=== PATIENT | male | born 2000 | race Caucasian/White ===

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

== ENCOUNTER 2020-12-12 14:10 | Emergency (ER) | payer BC ==
[2020-12-12] MEDS ORDERED: SUBLIMAZE 100 MCG/2 ML IV ONE (16:19)
[2020-12-12] MEDS ORDERED: Zofran 4 MG/2 ML VIAL IV ONE (16:20)
[2020-12-12] MEDS ORDERED: SUBLIMAZE 100 MCG/2 ML ONE (16:22)
[2020-12-12] MEDS ORDERED: Zofran 4 MG/2 ML VIAL ONE (16:22)
[2020-12-12] MEDS ORDERED: BACIGUENT PACKET TP ONE (16:56)
[2020-12-12] MEDS ORDERED: XYLOCAINE 1% HCL 20 ML MDV IJ ONE (16:56)
[2020-12-12] MEDS ORDERED: BACIGUENT PACKET ONE (16:58)
[2020-12-12] MEDS ORDERED: XYLOCAINE 1% HCL 20 ML MDV ONE (16:59)
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
[2020-12-12 17:07] VITALS: BP 129/70; PULSE 72
[2020-12-12 17:11] VITALS: O2SAT 100
--- NOTE | 2020-12-12 19:59 | XRAY ---
Indication: Medial laceration. Comparison: None 3 view left ankle demonstrates medial soft tissue swelling. No other bony, articular, or soft tissue abnormalities.
== END 2020-12-12 17:15 | disposition home or self-care (01) ==
LOC: ED 14:10
DX: S91.012A Laceration without foreign body, left ankle, initial encounter (principal); V29.9XXA Motorcycle rider (driver) (passenger) injured in unspecified traffic accident, initial encounter
CPT/HCPCS: 12002; 36000; 73610; 96372; 96374; 96375; 99284; J2405; J3010; A9270-GY

== ENCOUNTER 2020-12-17 21:02 | Inpatient (IN) | payer BC ==
[~2020-12-17 21:02] MED LIST: PHARMACY DOSING REQUIRED: VANCOMYCIN IV STA
[2020-12-17] MEDS ORDERED: FLAGYL 500 MG IVPB 500 MG/100 ML BAG IV STA (22:00)
[2020-12-17] MEDS ORDERED: AZACTAM 1 GM*** 2 GM in Sodium Chloride 0.9% 100 ML BAG 100 ML IV ONE (22:02)
[2020-12-17] MEDS ORDERED: VANCOMYCIN 2 GRAM/400 ML BAG 2 GM/400 ML PIGGYBACK IV ONE ×2 (22:02→22:26)
[2020-12-17] MEDS ORDERED: MORPHINE SULFATE 4 MG INJ IV ONE (22:03)
[2020-12-17] MEDS ORDERED: Zofran 4 MG/2 ML VIAL IV ONE ×2 (22:03→23:57)
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
[2020-12-17] MEDS ORDERED: Zofran 4 MG/2 ML VIAL ONE (22:25)
[2020-12-17] MEDS ORDERED: FLAGYL 500 MG IVPB 500 MG/100 ML BAG IV ONE (22:26)
[2020-12-17] MEDS ORDERED: MORPHINE SULFATE 4 MG INJ ONE (22:26)
[2020-12-17 22:27] LABS: Hematocrit 45.3 % (42-50); Hemoglobin 15.2 gm/dl (12.5-18.0); Lymphocytes % 15.6 % (24.0-44.0); Mean Cell Volume 87.8 fl (78-100); Mean Corpuscular Hemoglobin 29.5 pg (26-32); Mean Corpuscular Hgb Concent. 33.6 g/dl (32-36); Mean Platelet Volume 11.1 fl (7.5-11.0); Neutrophil % 70.6 % (36.0-66.0); Platelet Count 263 K/mm3 (150-450); Red Blood Count 5.16 M/mm3 (4.1-5.6); Red Cell Distribution Width 12.7 % (11.5-14.0)
[2020-12-17 22:28] LABS: Absolute Neutrophil Ct (ANC) 6.37 (1.4-6.9); BASOPHIL % 0.3 % (0.0-0.4); Basophil (Absolute #) 0.03 (0-0.4); Eosinophil % 2.1 % (0.00-5.0); Eosinophil (Absolute #) 0.19 (0-0.5); Lymphocyte (Absolute #) 1.41 (1.0-4.6); Monocyte (Absolute #) 1.03 (0.0-1.3); Monocytes % 11.4 % (0.0-12.0)
[2020-12-17 22:39] LABS: ALBUMIN 4.9 g/dL (3.5-5.0); ALKALINE PHOSPHATASE 70 U/L (38-126); ANION GAP 17.1 MEQ/L (5-15); BLOOD UREA NITROGEN 13 mg/dL (9-20); CHLORIDE 100 mmol/L (98-107); Calcium 10.2 mg/dL (8.4-10.2); Carbon Dioxide 31 mmol/L (22-30); Creatinine 1 0.89 mg/dL (0.66-1.25); EST GLOMERULAR FILTRATION RATE > 60.0 ML/MIN; Glucose 96 mg/dL (74-106); Potassium 3.9 mmol/L (3.5-5.1); SGOT/AST 48 U/L (17-59); SGPT/ALT 28 U/L (0-50); SODIUM 144 mmol/L (137-145); Total Protein 8.4 g/dL (6.3-8.2)
[2020-12-18] MEDS ORDERED: Zofran 4 MG/2 ML VIAL ONE ×2 (00:07→09:40)
[2020-12-18] MEDS ORDERED: AZACTAM 1 GM ONE ×3 (00:36→04:45)
[2020-12-18] MEDS ORDERED: Sodium Chloride 0.9% 100 ML BAG 100 ML ONE (00:36)
[2020-12-18] MEDS ORDERED: Sodium Chloride 0.9% 1000 ML 1,000 ML ONE ×2 (02:13→09:28)
[2020-12-18] MEDS: Sodium Chloride 0.9% 1000 ML 1,000 ML IV SCH ×2 (02:15→11:34)
[2020-12-18] MEDS ORDERED: MORPHINE SULFATE 4 MG INJ IV PRN ×2 (02:29→16:14)
[2020-12-18] MEDS ORDERED: VANCOCIN 1 GM VIAL*** 1 GM in Sodium Chloride 0.9% 250 ML 250 ML IV SCH ×2 (02:30→10:00)
[2020-12-18] MEDS ORDERED: Zofran 4 MG/2 ML VIAL IV PRN (02:30)
[2020-12-18] MEDS ORDERED: TYLENOL 325 MG PO PRN (02:47)
[2020-12-18] MEDS ORDERED: D5w 100ML Mini Bag 100 ML 100 ML IV ONE (04:45)
[2020-12-18] MEDS: FLAGYL 500 MG IVPB 500 MG/100 ML BAG IV SCH ×4 (04:56→23:39)
[2020-12-18 05:47] LABS: Hematocrit 40.4 % (42-50); Hemoglobin 13.3 gm/dl (12.5-18.0); Mean Corpuscular Hemoglobin 29.3 pg (26-32); Mean Corpuscular Hgb Concent. 32.9 g/dl (32-36); Mean Platelet Volume 10.9 fl (7.5-11.0); Platelet Count 211 K/mm3 (150-450); Red Blood Count 4.54 M/mm3 (4.1-5.6); Red Cell Distribution Width 12.5 % (11.5-14.0); White Blood Count 6.3 K/mm3 (4.0-10.5)
[2020-12-18] MEDS ORDERED: AZACTAM 1 GM*** 1 GM in Sodium Chloride 100ML MINI-BAG PLUS 100 ML IV SCH (06:00)
[2020-12-18 06:26] LABS: ANION GAP 13.1 MEQ/L (5-15); BLOOD UREA NITROGEN 11 mg/dL (9-20); CHLORIDE 106 mmol/L (98-107); Calcium 9.1 mg/dL (8.4-10.2); Carbon Dioxide 25 mmol/L (22-30); Creatinine 1 0.89 mg/dL (0.66-1.25); EST GLOMERULAR FILTRATION RATE > 60.0 ML/MIN; Glucose 90 mg/dL (74-106); PREALBUMIN 15.65 mg/dL (17.6-36.0); Potassium 3.7 mmol/L (3.5-5.1); SODIUM 141 mmol/L (137-145)
[2020-12-18] MEDS ORDERED: Xylocaine 1% Vial 30 ML PF IJ ONE (07:32)
[2020-12-18] MEDS ORDERED: BUPIVACAINE 0.5% VIAL IJ ONE ×2 (07:32→08:55)
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
[2020-12-18] MEDS ORDERED: Lactated Ringers 1,000 ML IV ONE (08:55)
[2020-12-18] MEDS ORDERED: XYLOCAINE 1% HCL 20 ML MDV ONE (08:55)
[2020-12-18] MEDS ORDERED: Versed 2 MG/2 ML Injection ONE (08:58)
[2020-12-18] MEDS ORDERED: SUBLIMAZE 100 MCG/2 ML ONE ×3 (08:59→10:20)
[2020-12-18] MEDS ORDERED: DIPRIVAN 200 MG/20 ML IV ONE (08:59)
[2020-12-18] MEDS ORDERED: NEBCIN INJ ONE (09:12)
[2020-12-18] MEDS ORDERED: TORAdol 30 mg Injection ONE (09:40)
--- NOTE | 2020-12-18 10:36 | PCM.NOTE ---
Podiatry Post-Op Plan Podiatry Post-Op Plan: Podiatry Post-Op Plan Post-operative plan is as follows: ANTIBIOTICS: Cultures taken intraoperatively. Awaiting culture and sensititivy. Vancomycin 1.25 gm Q8H. Flagyl 500 mg Q6H. PAIN CONTROL: [place] 5/325mg q4h moderate pain. Morphine 2 mg q4h severe pain. Discharge with [place] 5/325mg q6h VTE PROPHYLAXIS: . Aspirin 325 mg daily. SCD and compression hose to non op leg. Discharge with Aspirin 325 mg PO daily DRESSINGS: Dressing to remain clean and dry and intact. Daily dressing changes with betadine paint around wound edges adpatic 4x4 abd kerlix and otilio to secure. Reinforce with Kerlix/OTILIO as necessary. ACTIVITY: NWB to operative side.Full weight bearing to non operative side with Crutch assisstance. THERAPIES: PT/OT consult for gait training, assistive device training, and assessment of functional status with NWB to the Left leg. Incentive Spirometry. PLACEMENT: consult for D/c to home. Continued plans for surgical intervention for delayed primary closure next week or weekend depending on status.
[2020-12-18] MEDS: VANCOMYCIN 1.25 GM/250 ML BAG 1.25 GM/250 ML PIGGYBACK IV SCH ×2 (11:35→18:05)
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
[2020-12-18] MEDS: AZACTAM 1 GM*** 1 GM in Sodium Chloride 100ML MINI-BAG PLUS 100 ML IV SCH ×2 (14:47→22:00)
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
[2020-12-18] MEDS: NORCO 5/325 MG PO PRN ×2 (16:36→22:02)
[2020-12-18] MEDS: PROTONIX 40 MG IV IV SCH (21:59)
[2020-12-19] MEDS: VANCOMYCIN 1.25 GM/250 ML BAG 1.25 GM/250 ML PIGGYBACK IV SCH ×3 (01:42→18:11)
[2020-12-19] MEDS: Sodium Chloride 0.9% 1000 ML 1,000 ML IV SCH ×2 (01:42→13:51)
[2020-12-19] MEDS: AZACTAM 1 GM*** 1 GM in Sodium Chloride 100ML MINI-BAG PLUS 100 ML IV SCH ×3 (05:07→21:22)
[2020-12-19 06:08] LABS: Absolute Neutrophil Ct (ANC) 3.92 (1.4-6.9); BASOPHIL % 0.3 % (0.0-0.4); Basophil (Absolute #) 0.02 (0-0.4); Eosinophil % 4.2 % (0.00-5.0); Eosinophil (Absolute #) 0.26 (0-0.5); Hematocrit 39.3 % (42-50); Hemoglobin 12.8 gm/dl (12.5-18.0); Lymphocyte (Absolute #) 1.31 (1.0-4.6); Lymphocytes % 21.3 % (24.0-44.0); Mean Cell Volume 90.3 fl (78-100); Mean Corpuscular Hemoglobin 29.4 pg (26-32); Mean Corpuscular Hgb Concent. 32.6 g/dl (32-36); Mean Platelet Volume 10.6 fl (7.5-11.0); Monocyte (Absolute #) 0.63 (0.0-1.3); Monocytes % 10.3 % (0.0-12.0); Neutrophil % 63.9 % (36.0-66.0); Platelet Count 200 K/mm3 (150-450); Red Blood Count 4.35 M/mm3 (4.1-5.6); Red Cell Distribution Width 12.6 % (11.5-14.0); White Blood Count 6.1 K/mm3 (4.0-10.5)
[2020-12-19] MEDS: FLAGYL 500 MG IVPB 500 MG/100 ML BAG IV SCH ×4 (06:10→23:54)
[2020-12-19] MEDS: NORCO 5/325 MG PO PRN ×3 (06:10→19:42)
[2020-12-19 07:14] LABS: ANION GAP 10.8 MEQ/L (5-15); BLOOD UREA NITROGEN 7 mg/dL (9-20); CHLORIDE 107 mmol/L (98-107); Calcium 8.8 mg/dL (8.4-10.2); Carbon Dioxide 27 mmol/L (22-30); Creatinine 1 0.85 mg/dL (0.66-1.25); EST GLOMERULAR FILTRATION RATE > 60.0 ML/MIN; Glucose 90 mg/dL (74-106); SODIUM 141 mmol/L (137-145)
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
[2020-12-19] MEDS: Ecotrin 325 MG PO SCH (09:20)
[2020-12-19] MEDS ORDERED: TROUGH DRUG LEVELS IJ ONE (09:30)
--- NOTE | 2020-12-19 12:01 | PCM.NOTE ---
Date and Time: 12/19/20 1159 Subjective Assessment: patient reports his pain is well controlled, he has no complaints. wound was seen by Dr Calvin this morning and redressed now Objective Exam General Appearance: no apparent distress, alert Wound Assessment: Skin/Wound Assessment Wound/Incision Assessment Start: 12/18/20 01:49 Text: Status: Active Freq: Q6H Protocol: Document 12/19/20 08:00 [facility] (Rec: 12/19/20 08:43 [facility]AN [id number]) Wound/Incision Assessment Left Medial Ankle Wound Assessment Shift Assessment Wound Type Laceration Dressing Status Dry & Intact Comment OTILIO wrap to left ankle clean dry and intact. good capillary refill to left toes, moderate foot swelling noted.-remains true Respiratory Exam: normal breath sounds, lungs clear, No respiratory distress Cardiovascular Exam: regular rate/rhythm, normal heart sounds Gastrointestinal/Abdomen Exam: soft, No tenderness, No mass Extremity Exam: normal inspection (dressing intact to left lower extremity, otilio wrap in place), normal range of motion OBJECTIVE DATA Vital Signs: Vital Signs - 24 hr Temp Pulse Resp BP Pulse Ox 12/19/20 07:54 98.0 F 72 18 108/56 95 12/19/20 04:39 97.8 F 68 18 127/61 97 12/19/20 00:13 98.6 F 76 17 114/59 96 12/18/20 20:00 99.3 F 94 H 19 114/53 95 12/18/20 19:00 99.3 F 94 H 19 114/53 95 12/18/20 15:00 100.1 F 101 H 18 124/67 98 Pain Assessment - Last Documented Pain Intensity 7 Pain Scale Used 0-10 Pain Scale Intake and Output: Intake & Output 12/16/20 12/17/20 12/18/20 12/19/20 11:59 11:59 11:59 11:59 Intake Total 302 1822 Output Total 3300 Balance 302 -1478 Weight 85.4 kg Lab Results: Lab Results-Last 24 Hours 12/19/20 12/19/20 12/19/20 Range/Units 05:45 05:45 09:35 WBC 6.1 (4.0-10.5) K/mm3 RBC 4.35 (4.1-5.6) M/mm3 Hgb 12.8 (12.5-18.0) gm/dl Hct 39.3 L (42-50) % MCV 90.3 (78-100) fl MCH 29.4 (26-32) pg MCHC 32.6 (32-36) g/dl RDW 12.6 (11.5-14.0) % Plt Count 200 (150-450) K/mm3 MPV 10.6 (7.5-11.0) fl Gran % 63.9 (36.0-66.0) % Eos # (Auto) 0.26 (0-0.5) Absolute Lymphs (auto) 1.31 (1.0-4.6) Absolute Monos (auto) 0.63 (0.0-1.3) Lymphocytes % 21.3 L (24.0-44.0) % Monocytes % 10.3 (0.0-12.0) % Eosinophils % 4.2 (0.00-5.0) % Basophils % 0.3 (0.0-0.4) % Absolute Granulocytes 3.92 (1.4-6.9) Basophils # 0.02 (0-0.4) Sodium 141 (137-145) mmol/L Potassium 4.0 (3.5-5.1) mmol/L Chloride 107 (98-107) mmol/L Carbon Dioxide 27 (22-30) mmol/L Anion Gap 10.8 (5-15) MEQ/L BUN 7 L (9-20) mg/dL Creatinine 0.85 (0.66-1.25) mg/dL Estimated GFR > 60.0 ML/MIN Glucose 90 (74-106) mg/dL Calcium 8.8 (8.4-10.2) mg/dL Vancomycin Trough 10.52 (10-20) ug/mL Radiology Exams: Radiology Procedures Category Date Time Status FOOT (2 VIEWS) Stat Exams 12/18/20 07:39 Completed Multi-Disciplinary Progress Notes: Multi-Disciplinary Progress Notes 12/19/20 08:49 Respiratory Note by Rosalva Iglesias TO [place] Initialized on 12/19/20 08:49 - END OF NOTE 12/18/20 16:05 Physical Therapy Note by Kath Farris P.T. ORDERED FOR GAIT TRAINING D/T L ANKLE CELLULITIS. PT. HAD I&D THIS AM AND IS TO HAVE ANOTHER PROCEDURE ON 12/22/20. SPOKE W/ PT. AND MOM THIS DATE. PT. HAS BEEN USING AXILLARY CRUTCHES SINCE 12/15/20 PWB-NWB. PT. AND MOM REOPRT HE IS INDEPENDENT W/ USE OF CRUTCHES AND HE VERBALIZES UNDERSTANDING OF NWB STATUS. PT. TIRED TODAY AND WILL GET UP W/ NSG ON THE AM W/ CRUTCHES AND NWB L LE. NO SKILLED INTERVENTION WARRANTED AT THIS TIME. ADVISED PT. AND MOM TO HAVE NURSING NOTIFY P.T. IF THEY HAVE QUESTIONS LATER. Initialized on 12/18/20 16:05 - END OF NOTE Assessment/Plan (1) Cellulitis of lower extremity Current Visit: Yes Status: Acute Qualifiers: Laterality: left Qualified Code(s): L03.116 - Cellulitis of left lower limb Assessment & Plan: continue vanc and flagyl per podiatry at this time plan is to return to OR with bead removal and delayed closure, patient is stable at this time. (2) Failure of outpatient treatment Current Visit: Yes Status: Acute Code(s): Z78.9 - OTHER SPECIFIED HEALTH STATUS (3) Wound infection Current Visit: Yes Status: Acute Code(s): T14.8XXA - OTHER INJURY OF UNSPECIFIED BODY REGION, INITIAL ENCOUNTER; L08.9 - LOCAL INFECTION OF THE SKIN AND SUBCUTANEOUS TISSUE, UNSP
[2020-12-19] MEDS: PROTONIX 40 MG IV IV SCH (21:22)
[2020-12-20] MEDS: Sodium Chloride 0.9% 1000 ML 1,000 ML IV SCH ×2 (02:22→12:21)
[2020-12-20] MEDS: VANCOMYCIN 1.25 GM/250 ML BAG 1.25 GM/250 ML PIGGYBACK IV SCH ×3 (02:23→18:42)
[2020-12-20] MEDS: AZACTAM 1 GM*** 1 GM in Sodium Chloride 100ML MINI-BAG PLUS 100 ML IV SCH ×3 (05:34→21:36)
[2020-12-20] MEDS: NORCO 5/325 MG PO PRN ×3 (05:34→17:52)
[2020-12-20] MEDS: FLAGYL 500 MG IVPB 500 MG/100 ML BAG IV SCH ×4 (06:00→23:47)
[2020-12-20 06:31] LABS: BASOPHIL % 0.6 % (0.0-0.4); Basophil (Absolute #) 0.03 (0-0.4); Eosinophil % 5.8 % (0.00-5.0); Eosinophil (Absolute #) 0.31 (0-0.5); Hematocrit 40.9 % (42-50); Hemoglobin 13.6 gm/dl (12.5-18.0); Lymphocyte (Absolute #) 1.32 (1.0-4.6); Lymphocytes % 24.5 % (24.0-44.0); Mean Cell Volume 88.7 fl (78-100); Mean Corpuscular Hemoglobin 29.5 pg (26-32); Mean Corpuscular Hgb Concent. 33.3 g/dl (32-36); Mean Platelet Volume 10.5 fl (7.5-11.0); Monocyte (Absolute #) 0.52 (0.0-1.3); Monocytes % 9.7 % (0.0-12.0); Neutrophil % 59.4 % (36.0-66.0); Platelet Count 225 K/mm3 (150-450); Red Blood Count 4.61 M/mm3 (4.1-5.6); Red Cell Distribution Width 12.5 % (11.5-14.0); White Blood Count 5.4 K/mm3 (4.0-10.5)
[2020-12-20 06:48] LABS: ALBUMIN 3.5 g/dL (3.5-5.0); ALKALINE PHOSPHATASE 48 U/L (38-126); ANION GAP 11.9 MEQ/L (5-15); BLOOD UREA NITROGEN 8 mg/dL (9-20); CHLORIDE 108 mmol/L (98-107); Carbon Dioxide 28 mmol/L (22-30); Creatinine 1 0.79 mg/dL (0.66-1.25); EST GLOMERULAR FILTRATION RATE > 60.0 ML/MIN; Glucose 88 mg/dL (74-106); Potassium 4.1 mmol/L (3.5-5.1); SGOT/AST 26 U/L (17-59); SGPT/ALT 22 U/L (0-50); SODIUM 144 mmol/L (137-145); Total Protein 6.3 g/dL (6.3-8.2)
--- NOTE | 2020-12-20 08:42 | PCM.NOTE ---
Date and Time: 12/20/20 0840 Subjective Assessment: no problems or concerns, pain is well controlled. tolerating po intake Objective Exam General Appearance: no apparent distress Wound Assessment: Skin/Wound Assessment Wound/Incision Assessment Start: 12/18/20 01:49 Text: Status: Active Freq: Q6H Protocol: Document 12/20/20 02:00 [facility] (Rec: 12/20/20 02:30 [facility] [id number]) Wound/Incision Assessment Left Medial Ankle Wound Assessment Shift Assessment Wound Type Laceration Dressing Status Dry & Intact Drainage Amount Minimal Drainage Odor None/Absent Comment OTILIO wrap to left ankle clean dry and intact. good capillary refill to left toes, moderate foot swelling noted.-remains true Respiratory Exam: normal breath sounds, lungs clear, No respiratory distress Cardiovascular Exam: regular rate/rhythm, normal heart sounds Gastrointestinal/Abdomen Exam: soft, No tenderness, No mass Extremity Exam: other (otilio wrap and dressing intact to LLE) OBJECTIVE DATA Vital Signs: Vital Signs - 24 hr Temp Pulse Resp BP Pulse Ox 12/20/20 07:00 97.6 F 68 16 127/60 97 12/20/20 03:00 97.7 F 74 18 131/68 98 12/19/20 23:00 98.0 F 72 18 131/66 97 12/19/20 19:26 98.3 F 84 16 121/59 97 12/19/20 16:26 98.0 F 73 18 131/75 98 12/19/20 13:00 97.9 F 75 16 130/60 96 Pain Assessment - Last Documented Pain Intensity 6 Pain Scale Used 0-10 Pain Scale Intake and Output: Intake & Output 12/17/20 12/18/20 12/19/20 12/20/20 11:59 11:59 11:59 11:59 Intake Total 302 1822 5101 Output Total 3300 Balance 302 -1478 5101 Weight 85.4 kg Lab Results: Lab Results-Last 24 Hours 12/19/20 12/20/20 12/20/20 Range/Units 09:35 05:37 05:37 WBC 5.4 (4.0-10.5) K/mm3 RBC 4.61 (4.1-5.6) M/mm3 Hgb 13.6 (12.5-18.0) gm/dl Hct 40.9 L (42-50) % MCV 88.7 (78-100) fl MCH 29.5 (26-32) pg MCHC 33.3 (32-36) g/dl RDW 12.5 (11.5-14.0) % Plt Count 225 (150-450) K/mm3 MPV 10.5 (7.5-11.0) fl Gran % 59.4 (36.0-66.0) % Eos # (Auto) 0.31 (0-0.5) Absolute Lymphs (auto) 1.32 (1.0-4.6) Absolute Monos (auto) 0.52 (0.0-1.3) Lymphocytes % 24.5 (24.0-44.0) % Monocytes % 9.7 (0.0-12.0) % Eosinophils % 5.8 H (0.00-5.0) % Basophils % 0.6 (0.0-0.4) % Absolute Granulocytes 3.20 (1.4-6.9) Basophils # 0.03 (0-0.4) Sodium 144 (137-145) mmol/L Potassium 4.1 (3.5-5.1) mmol/L Chloride 108 H (98-107) mmol/L Carbon Dioxide 28 (22-30) mmol/L Anion Gap 11.9 (5-15) MEQ/L BUN 8 L (9-20) mg/dL Creatinine 0.79 (0.66-1.25) mg/dL Estimated GFR > 60.0 ML/MIN Glucose 88 (74-106) mg/dL Calcium 9.0 (8.4-10.2) mg/dL Total Bilirubin 0.10 L (0.2-1.3) mg/dL AST 26 (17-59) U/L ALT 22 (0-50) U/L Alkaline Phosphatase 48 (38-126) U/L Serum Total Protein 6.3 (6.3-8.2) g/dL Albumin 3.5 (3.5-5.0) g/dL Vancomycin Trough 10.52 (10-20) ug/mL Multi-Disciplinary Progress Notes: Multi-Disciplinary Progress Notes 12/19/20 08:49 [place]piratory [place] Rosalva Iglesias [place] [facility] [place] on 12/19/20 08:49 - END OF NOTE Assessment/Plan (1) Cellulitis of lower extremity Current Visit: Yes Status: Acute Qualifiers: Laterality: left Qualified Code(s): L03.116 - Cellulitis of left lower limb Assessment & Plan: klebsiella sens to azactam, plan to return to OR per podiatry. continue current management (2) Failure of outpatient treatment Current Visit: Yes Status: Acute Code(s): Z78.9 - OTHER SPECIFIED HEALTH STATUS (3) Wound infection Current Visit: Yes Status: Acute Code(s): T14.8XXA - OTHER INJURY OF UN SPECIFIED BODY REGION, INITIAL ENCOUNTER; L08.9 - LOCAL INFECTION OF THE SKIN AND SUBCUTANEOUS TISSUE, UNSP
[2020-12-20] MEDS: Ecotrin 325 MG PO SCH (10:12)
[2020-12-20] MEDS: PROTONIX 40 MG IV IV SCH (21:40)
[2020-12-21] MEDS: VANCOMYCIN 1.25 GM/250 ML BAG 1.25 GM/250 ML PIGGYBACK IV SCH (01:36)
[2020-12-21 05:41] LABS: Absolute Neutrophil Ct (ANC) 4.24 (1.4-6.9); BASOPHIL % 0.3 % (0.0-0.4); Basophil (Absolute #) 0.02 (0-0.4); Eosinophil % 3.7 % (0.00-5.0); Eosinophil (Absolute #) 0.24 (0-0.5); Hematocrit 43.2 % (42-50); Hemoglobin 14.2 gm/dl (12.5-18.0); Lymphocyte (Absolute #) 1.25 (1.0-4.6); Lymphocytes % 19.4 % (24.0-44.0); Mean Corpuscular Hemoglobin 28.9 pg (26-32); Mean Corpuscular Hgb Concent. 32.9 g/dl (32-36); Mean Platelet Volume 10.5 fl (7.5-11.0); Monocyte (Absolute #) 0.69 (0.0-1.3); Monocytes % 10.7 % (0.0-12.0); Neutrophil % 65.9 % (36.0-66.0); Platelet Count 252 K/mm3 (150-450); Red Blood Count 4.91 M/mm3 (4.1-5.6); Red Cell Distribution Width 12.6 % (11.5-14.0); White Blood Count 6.4 K/mm3 (4.0-10.5)
[2020-12-21] MEDS: AZACTAM 1 GM*** 1 GM in Sodium Chloride 100ML MINI-BAG PLUS 100 ML IV SCH (06:05)
[2020-12-21] MEDS: NORCO 5/325 MG PO PRN ×3 (06:05→19:58)
[2020-12-21 06:19] LABS: ANION GAP 13.3 MEQ/L (5-15); BLOOD UREA NITROGEN 9 mg/dL (9-20); CHLORIDE 107 mmol/L (98-107); Calcium 9.6 mg/dL (8.4-10.2); Carbon Dioxide 25 mmol/L (22-30); Creatinine 1 0.79 mg/dL (0.66-1.25); EST GLOMERULAR FILTRATION RATE > 60.0 ML/MIN; Glucose 83 mg/dL (74-106); Potassium 4.1 mmol/L (3.5-5.1); SODIUM 140 mmol/L (137-145)
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
[2020-12-21] MEDS: FLAGYL 500 MG IVPB 500 MG/100 ML BAG IV SCH (09:28)
[2020-12-21] MEDS: Levofloxacin 500MG/100ML D5W 500 MG/100 ML BAG IV SCH (09:39)
[2020-12-21] MEDS: Ecotrin 325 MG PO SCH (11:18)
[2020-12-21] MEDS: PROTONIX 40 MG IV IV SCH (21:18)
[2020-12-21] MEDS: Lactated Ringers 1,000 ML IV SCH (21:40)
[2020-12-22] MEDS: NORCO 5/325 MG PO PRN (00:03)
[2020-12-22] MEDS ORDERED: XYLOCAINE 1% HCL 20 ML MDV ONE (07:03)
[2020-12-22] MEDS ORDERED: BUPIVACAINE 0.5% VIAL IJ ONE (07:03)
[2020-12-22] MEDS: Levofloxacin 500MG/100ML D5W 500 MG/100 ML BAG IV SCH (09:50)
[2020-12-22] MEDS: Lactated Ringers 1,000 ML IV SCH (09:50)
[2020-12-22] MEDS: Ecotrin 325 MG PO SCH (09:51)
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
[2020-12-22] MEDS ORDERED: Versed 2 MG/2 ML Injection ONE (13:32)
[2020-12-22] MEDS ORDERED: SUBLIMAZE 100 MCG/2 ML ONE ×3 (13:32→14:30)
[2020-12-22] MEDS ORDERED: DIPRIVAN 200 MG/20 ML IV ONE (13:32)
[2020-12-22] MEDS ORDERED: MORPHINE SULFATE 10 MG/ML ONE (14:29)
[2020-12-22] MEDS ORDERED: MOTRIN 600 MG PO PRN (16:06)
[2020-12-22 16:12] VITALS: BP 121/64; PULSE 72; O2SAT 97
--- NOTE | 2020-12-22 17:55 | PCM.NOTE ---
Podiatry Post-Op Plan Podiatry Post-Op Plan: Podiatry Post-Op Plan Post-operative plan is as follows:[] ANTIBIOTICS:Dc levofloxacin 500mg PO 10 days PAIN CONTROL: D/c with acetaminophen 325 mg capsule, Naproxen 375 mg PO BID VTE PROPHYLAXIS: Aspirin 325 mg PO daily 30 days DRESSINGS: Dressing to remain clean and dry. Reinforce with Kerlix/OTILIO as necessary. ACTIVITY: NWB to operative side. D/c To home: follow up week outpatient.
--- NOTE | 2020-12-22 17:56 | OP ---
Podiatry Procedure Note Procedure Date:: 12/22/20 Procedure Time: 01:15 Podiatry Procedure Note: Dictated. See full operative report for details.
--- NOTE | 2020-12-23 08:47 | OP ---
SURGERY DATE/TIME: 12/22/2020 6626 PREOPERATIVE DIAGNOSIS: Laceration with wound infection left ankle and failed outpatient therapy. POSTOPERATIVE DIAGNOSIS: Laceration with wound infection left ankle and failed outpatient therapy. PROCEDURE: Repeat incision and drainage, removal of antibiotic beads as well as primary closure. SURGEON: Nikunj Isidro DPM. MUD TEMPERER: None. ANESTHESIA: General. HEMOSTASIS: Pressure dressing. ESTIMATED BLOOD LOSS: Less than 10 cc. MATERIALS: 3-0 Nylon. INJECTABLES: 10 cc of a 1% lidocaine plain and 0.5% bupivacaine plain in a 1:1 mixture injected into the posterior tibial nerve distribution of the left ankle. DESCRIPTION OF PROCEDURE AND FINDINGS: After adequate assessment by the preoperative anesthesia team, the patient was brought into the OR and placed on the OR table in the supine position. Following adequate administration of general anesthetic, the patient's left lower extremity was prepped and draped in typical sterile fashion. At this time attention was then directed to the left lower extremity where the two retention sutures were removed demonstrating relatively clean edges with some necrotic margin of the wound. The wound was explored at this time with removal of the antibiotic beads in order to assess further in the wound base. At this time there was some residual necrotic tissue at the medial aspect of the left ankle which was debrided utilizing curette. The remainder of the wound was inspected for any necrotic tissue at this time. Pulse lavage with copious amounts of sterile saline were utilized to identify, were used to cleanse the surgical site and at this time was inspected following pulse lavage demonstrating clean margins and no residual signs of infection or necrosis. At this time a 15 blade was utilized to incise the edge of the wound where there was a clean healthy margin of bleeding as well as a removal of all the remaining necrotic tissue at the margin. Following this continued lavage was performed. At this time the incision was then coapted utilizing an alternating horizontal mattress and simple interrupted-type suture so that the wound was everted and coapted. At this time a sopping wet lap was applied in order to cleanse the left lower extremity and then dried and a dressing consisting of Betadine, Adaptic, 4x4, Kerlix and OTILIO was applied to the left lower extremity. The patient was reversed from anesthesia and handled the operation and anesthesia without complication. Postoperative orders as indicated in the patient's chart.
== END 2020-12-22 16:30 | disposition home or self-care (01) | DRG 908 ==
LOC: ED 21:02 → MED SURG 12-18 00:37
PROVIDERS: ADMIT Family Medicine; ATTEND Family Medicine
PROC: 0H9NXZX Drainage of Left Foot Skin, External Approach, Diagnostic (ICD-10-PCS; 2020-12-18)
PROC: 3E0102A Introduction of Anti-Infective Envelope into Subcutaneous Tissue, Open Approach (ICD-10-PCS; 2020-12-18)
PROC: 0H9NXZX Drainage of Left Foot Skin, External Approach, Diagnostic (ICD-10-PCS; principal; 2020-12-22)
PROC: 0YQN0ZZ Repair Left Foot, Open Approach (ICD-10-PCS; 2020-12-22)
DX: T81.49XS Infection following a procedure, other surgical site, sequela (principal); L03.116 Cellulitis of left lower limb; L02.612 Cutaneous abscess of left foot; S91.312S Laceration without foreign body, left foot, sequela; Z20.828 Contact with and (suspected) exposure to other viral communicable diseases
CPT/HCPCS: 10061; 11981; 13160; 36000; 36415; 73620; 80048; 80053; 80202; 83605; 84134; 85025; 85027; 87040; 87070; 87077; 87186; 96365; 96368; 96374; 99231; 99285; J1885; J1956; J2001; J2250; J2270; J2405; J2704; J3010; J3260; U0003; A9270-GY; J3370

== ENCOUNTER 2021-02-27 08:44 | Emergency (ER) | payer BC ==
[2021-02-27 08:55] VITALS: O2SAT 98
--- NOTE | 2021-02-27 09:07 | ERPHSYRPT ---
- History of Present Illness Time Seen by Provider: 02/27/21 09:02 Source: patient Exam Limitations: no limitations Patient Subjective Stated Complaint: Pt states "I was headed after my dog and I tripped and hit a metal stake and cut my knee." Triage Nursing Assessment: Pt presented alert and oriented X 3, skin pwd. Pt ambulates with a limp. pt has laceration note to right knee. area is clean with no bleeding. Physician History: Pt states "I was headed after my dog and I tripped and hit a metal stake and cut my knee." pt has laceration note to right knee. area is clean with no bleeding. Method of Injury: incised Occurred: yesterday Severity of Pain-Max: mild Severity of Pain-Current: mild Lower Extremities Pain: knee: right Modifying Factors: Improves With: nothing Associated Symptoms: none Allergies/Adverse Reactions: amoxicillin Allergy (Mild, Verified 12/17/20 22:04) Swelling Home Medications: No Reportable Medications [No Reported Medications] 02/27/21 [History] Hx Tetanus, Diphtheria Vaccination/Date Given: Yes Hx Influenza Vaccination/Date Given: No Hx Pneumococcal Vaccination/Date Given: No Immunizations Up to Date: Yes Travel Risk - International Travel Have you traveled outside of the country in past 3 weeks: No - Coronavirus Screening Are you exhibiting any of the following symptoms?: No Close contact with a COVID-19 positive Pt in past 14-21 Days: No - Vaccine Status Have you recieved a Covid-19 vaccination: No - Review of Systems Constitutional: No Symptoms Eyes: No Symptoms Ears, Nose, & Throat: No Symptoms Respiratory: No Symptoms Cardiac: No Symptoms Abdominal/Gastrointestinal: No Symptoms Genitourinary Symptoms: No Symptoms Musculoskeletal: No Symptoms Skin: Other (laceration right knee 5 cms triangular) - Past Medical History Pertinent Past Medical History: No Neurological History: No Pertinent History ENT History: No Pertinent History Cardiac History: No Pertinent History Respiratory History: No Pertinent History Endocrine Medical History: No Pertinent History Musculoskeletal History: No Pertinent History GI Medical History: No Pertinent History History: No Pertinent History Psycho-Social History: No Pertinent History Male Reproductive Disorders: No Pertinent History Other Medical History: heart murmer - Past Surgical History Past Surgical History: No - Social History Smoking Status: Never smoker Exposure to second hand smoke: No Drug Use: none Patient Lives Alone: No Significant Family History: no pertinent family hx - Nursing Vital Signs Nursing Vital Signs: Initial Vital Signs Temperature 98.9 F 02/27/21 08:47 Pulse Rate 92 H 02/27/21 08:47 Respiratory Rate 20 02/27/21 08:47 Blood Pressure 133/55 02/27/21 08:47 O2 Sat by Pulse Oximetry 98 02/27/21 08:47 Pain Scale Pain Intensity 5 - Physical Exam General Appearance: no apparent distress Eyes, Ears, Nose, Throat Exam: normal ENT inspection Neck Exam: normal inspection Cardiovascular/Respiratory Exam: chest non-tender Gastrointestinal/Abdominal Exam: non-tender Back Exam: normal inspection Knees Exam: right knee: soft tissue tenderness (laceration on left knee) Neuro/Tendon Exam: normal sensation Mental Status Exam: alert, oriented x 3 Skin Exam: laceration SpO2 Interpretation: normal SpO2: 98 O2 Delivery: Room Air Procedures - Laceration/Wound Repair Right Anterior Time of Procedure: 09:06 Wound Location: Right Wound Length (cm): 6 Wound's Depth, Shape: superficial, stellate Wound Explored: clean Irrigated: Yes Hibiclens Prep: Yes Wound Repaired With: Ping (7 ping) - Course Nursing assessment & vital signs reviewed: Yes - Progress Progress: improved Counseled pt/family regarding: diagnosis, need for follow-up (ping removal in 10 days, keep knee immobile and wrapped.) - Departure Departure Disposition: Home Clinical Impression: Laceration of right knee without foreign body Qualifiers: Encounter type: initial encounter Qualified Code(s): S81.011A - Laceration without foreign body, right knee, initial encounter Condition: Stable Critical Care Time: No Referrals: SUSANNA BORREGO [Primary Care Provider] - Follow Up with PCP/3 days (follow up in 10 days for suture removal) Instructions: Laceration Repair With [place] (DC) Additional Instructions: Discharge/Care Plan MELYELIGIO GABRIEL was seen on 02/27/21 in the Emergency Room. The patient was counseled regarding Diagnosis,Lab results, Imaging studies, need for follow up and when to return to the Emergency Room. Prescriptions given: Discharge Note I have spoken with the patient and/or caregivers. I have explained the patient's condition, diagnosis and treatment plan based on the information available to me at this time. I have answered the patient's and/or caregiver's questions and addressed any concerns. The patient and/or caregivers have as good understanding of the patient's diagnosis, condition and treatment plan as can be expected at this point. The vital signs have been stable. The patient's condition is stable and appropriate for discharge from the emergency department. The patient will pursue further outpatient evaluation with the primary care physician or other designated or consulting physician as outlined in the discharge instructions. The patient and/or caregivers are agreeable to this plan of care and follow-up instructions have been explained in detail. The patient and/or caregivers have received these instruction. The patient/and or caregivers are aware that any significant change in condition or worsening of symptoms should prompt an immediate return to this or the closest emergency department or call 911. ELIGIO BOONE GABRIEL was seen on 02/27/21 n the Emergency Room. At that time you were treated for an emergent condition, during your visit Laboratory, Radiology and/or other procedures may have been ordered. It is very important that you follow-up with your Primary Care Physician SUSANNA BORREGO within the next 24-48 hours to review your Emergency Room visit and the final results of testing that was ordered. Some test results such as Urine Cultures, Blood Cultures, and other cultures if ordered will not be finalized for 24-48 hours. If you do not have a Primary Care Provider please call the medical records department at [phone] ext [phone] to obtain a copy of your results or you may sign into our patient portal to obtain these results by visiting us @ [email or web address] and completing the following steps: 1. Click on the Patient Portal link 2. Click the Patient Self Enrollment Link to complete the enrollment form and entering your 3. Once the enrollment form is completed you will receive an email with a temporary ID and password at the email address you provided. 4. Next choose a user name and password. Your user name must be at least 4 characters long and your password must be at least 4 characters long. 5. Choose a security question from the list and provide your answer to the question. If you already have signed into the Health Portal you may access your Health Care Information 02/01 by the following steps: 1. Login to our website @ [email or web address] 2. Enter your original user name and password. FAQS The [facility] Health Portal is an online tool that contains your Lab Results, Radiology Reports, Visit History, Discharge Instructions and Health Summary Lab and Radiology Results will not be available for 72 hours on the portal. The Portal is a secure site, passwords are encryted and URLs are re-written so they cannot be copied and pasted. You and authorized family members are the only ones who can access your Portal. Also there is a timeout feature that protects your information if you leave the Portal page open. If you have technical difficulty please use the Contact Us link on the page this will allow you to submit any questions you have regarding the Portal or you may contact the Medical Record Department at [phone] ext [phone]. Staple removal in 10 days. Donot bend knee for at least 3-5 days Forms: Work/School Release Form
[2021-02-27 09:23] VITALS: BP 128/61; PULSE 86
== END 2021-02-27 09:22 | disposition home or self-care (01) ==
LOC: ED 08:44
DX: S81.011A Laceration without foreign body, right knee, initial encounter (principal); W01.198A Fall on same level from slipping, tripping and stumbling with subsequent striking against other object, initial encounter; Y93.01 Activity, walking, marching and hiking; Y92.89 Other specified places as the place of occurrence of the external cause
CPT/HCPCS: 12002; 99283

== ENCOUNTER 2022-01-31 16:11 | Emergency (ER) | payer BC ==
--- NOTE | 2022-01-31 17:58 | ERPHSYRPT ---
- History of Present Illness Time Seen by Provider: 01/31/22 17:22 Source: patient Exam Limitations: no limitations Patient Subjective Stated Complaint: Patient states he cut his thumb when working on dry wall at home around 4pm today. Triage Nursing Assessment: Patient ambulated back to ED. He is alert and oriented. Laceration noted to left hand thumb. The laceration was covered with a papertowel when patient arrived. Paper towel removed. Moderate amount of active bleeding from thumb laceration. Area cleansed with sterile water and hibiclens; patient tolerated well. Bleeding slowed when gauze applied. Laceration is 2cm in length. Physician History: This is a 21 yr old pt. presenting to ED with laceration to left thumb sustained 30 min prior to arrival - Reports that he was working on a dry wall when he accidentally cut his thumb. Reports the knife was new, had just started working when this happened - Tetanus uptodate - states he had had several work related injuries. - Is not on blood thinners - Reports thumb hurts - Denies allergy to injected anesthetics. - Denies other injuries / medical problems. - currently on cefdinir. Timing/Duration: today Quality: painful Severity: mild Location: hands Possible Causes: other (Cut with clean new knife) Associated Symptoms: No blisters, No change in skin texture, No fever, No numbness, No paresthesia, No tingling Allergies/Adverse Reactions: amoxicillin Allergy (Mild, Verified 01/31/22 17:39) Swelling Home Medications: Cefdinir 1 cap PO BID 01/31/22 [History] Hx Tetanus, Diphtheria Vaccination/Date Given: Yes Hx Influenza Vaccination/Date Given: No Hx Pneumococcal Vaccination/Date Given: No Immunizations Up to Date: Yes Travel Risk - International Travel Have you traveled outside of the country in past 3 weeks: No - Coronavirus Screening Are you exhibiting any of the following symptoms?: No Close contact with a COVID-19 positive Pt in past 14-21 Days: No - Vaccine Status Have you recieved a Covid-19 vaccination: No - Review of Systems Constitutional: No Fever, No Chills, No Malaise Eyes: No Discharge, No Eye Redness, No Vision Changes, No Double Vision Ears, Nose, & Throat: No Ear Pain, No Ear Discharge, No Sinus Drainage, No Throat Pain Respiratory: No Cough, No Dyspnea on Exertion (CRUZ), No Wheezing Cardiac: No Chest Pain, No Edema, No Palpitations Abdominal/Gastrointestinal: No Abdominal Pain, No Nausea, No Vomiting, No Constipation, No Hematemesis, No Hematochezia Genitourinary Symptoms: No Dysuria, No Hematuria, No Flank Pain Musculoskeletal: No Arthralgias, No Joint Redness, No Joint Swelling Skin: Other (laceration on left thumb) Neurological: No Dizziness, No Focal Weakness, No Headache, No Seizure, No Sensory Changes Psychological: No Alcohol Abuse, No Drug Abuse Hematologic/Lymphatic: No Symptoms, No Easy Bleeding, No Easy Bruising Immunological/Allergic: No Symptoms All Other Systems: Reviewed and Negative - Past Medical History Pertinent Past Medical History: No Neurological History: No Pertinent History ENT History: No Pertinent History Cardiac History: No Pertinent History Respiratory History: No Pertinent History Endocrine Medical History: No Pertinent History Musculoskeletal History: No Pertinent History GI Medical History: No Pertinent History History: No Pertinent History Psycho-Social History: No Pertinent History Male Reproductive Disorders: No Pertinent History Other Medical History: heart murmer - Past Surgical History Past Surgical History: Yes Musculoskeletal: Orthopedic Surgery Other Surgical History: ankle surgery - Social History Smoking Status: Never smoker Exposure to second hand smoke: No Drug Use: none Patient Lives Alone: No Significant Family History: no pertinent family hx - Nursing Vital Signs Nursing Vital Signs: Initial Vital Signs Temperature 97.8 F 01/31/22 17:12 Pulse Rate 80 01/31/22 17:12 Respiratory Rate 18 01/31/22 17:12 Blood Pressure 124/72 01/31/22 17:12 O2 Sat by Pulse Oximetry 98 01/31/22 17:12 Pain Scale Pain Intensity 5 - Physical Exam General Appearance: no apparent distress Eye Exam: PERRL/EOMI, eyes nml inspection Ears, Nose, Throat Exam: normal ENT inspection, pharynx normal, moist mucous membranes Neck Exam: normal inspection, non-tender, supple, full range of motion Respiratory Exam: normal breath sounds, lungs clear Cardiovascular Exam: regular rate/rhythm, normal heart sounds, normal peripheral pulses, capillary refill <2 sec Gastrointestinal/Abdomen Exam: soft, normal bowel sounds Back Exam: normal inspection Extremity Exam: normal inspection Neurologic Exam: alert, oriented x 3, cooperative Skin Exam: normal color, warm, laceration, other (a 2cm laceration along lateral border to thumb adjaced to nail, not involving the nail, actively bleeding, superficial, no involvement of tendons, good ROM, no exposure of fat, no FB has been cleaned thoroughly.) Lymphatic Exam: adenopathy SpO2 Interpretation: normal SpO2: 98 O2 Delivery: Room Air Procedures - Laceration/Wound Repair Left Finger Time of Procedure: 07:30 Wound Location: Left Wound Length (cm): 2 (cm) Wound's Depth, Shape: superficial Wound Explored: in bloodless field Irrigated: Yes Hibiclens Prep: Yes Anesthesia: local, 1% Lidocaine Volume Anesthetic (ccs): 4 Wound Debrided: Not needed Wound Repaired With: sutures Suture Size/Type: 4-0, ethilon Number of Sutures: 4 Layer Closure?: No Sterile Dressing Applied?: Yes Splint Applied?: No Sling Applied?: No Progress: 02/01/22 21:37 Pt. tolerated procedure well, minimal bleeding during suturing. Bleeding completely controlled post suturing. Ordered Tests: Medication Summary Discontinued Medications Generic Name Dose Route Start Last Admin Trade Name Ottoq PRN Reason Stop Dose Admin Bacitracin Zinc Confirm 01/31/22 18:09 Bacitracin Packet 1 Each Pckt Administered 01/31/22 18:10 Dose 1 each .ROUTE .STK-MED ONE Bacitracin Zinc 0.9 each 01/31/22 18:00 01/31/22 18:01 Bacitracin Packet 1 Each Pckt TP 01/31/22 18:01 0.9 each STAT ONE Administration Lidocaine HCl 2 ml 01/31/22 18:26 01/31/22 18:27 Lidocaine Hcl 1% 20 Ml Mdv 20 Ml Ml IJ 01/31/22 18:27 2 ml STAT ONE Administration - Progress Progress: improved Progress Note: 02/01/22 21:38 This's a 21 yr old pt. presenting with 2 cm superficial laceration to left thumb - which occured 30 min ago - Wound was closed by sterile technique- please see suturing note - Currently on cefdinir- continue - tetanus - uptodate - Wound care discussed in detail - Advised ice pack x 10-15 min TID, and close f/u with PCP in am - Pt. advised to return for any new or worsening s/s or any concern at all. - Has no further questions. - Departure Clinical Impression: Laceration of thumb without complication Condition: Stable Critical Care Time: No Referrals: IVELISSE NG MD [Primary Care Provider] - Follow up/PCP as directed Additional Instructions: Discharge/Care Plan ELIGIO BOONE was seen on 01/31/22 in the Emergency Room. The patient was counseled regarding Diagnosis,Lab results, Imaging studies, need for follow up and when to return to the Emergency Room. Prescriptions given: Discharge Note I have spoken with the patient and/or caregivers. I have explained the patient's condition, diagnosis and treatment plan based on the information available to me at this time. I have answered the patient's and/or caregiver's questions and addressed any concerns. The patient and/or caregivers have as good understanding of the patient's diagnosis, condition and treatment plan as can be expected at this point. The vital signs have been stable. The patient's condition is stable and appropriate for discharge from the emergency department. The patient will pursue further outpatient evaluation with the primary care physician or other designated or consulting physician as outlined in the discharge instructions. The patient and/or caregivers are agreeable to this plan of care and follow-up instructions have been explained in detail. The patient and/or caregivers have received these instruction. The patient/and or caregivers are aware that any significant change in condition or worsening of symptoms should prompt an immediate return to this or the closest emergency department or call 911.
[2022-01-31] MEDS ORDERED: BACIGUENT PACKET TP ONE (18:00)
[2022-01-31] MEDS ORDERED: BACIGUENT PACKET ONE (18:09)
[2022-01-31 18:23] VITALS: BP 120/68; PULSE 76
[2022-01-31] MEDS ORDERED: XYLOCAINE 1% HCL 20 ML MDV IJ ONE (18:26)
[2022-02-01 21:29] VITALS: O2SAT 98
== END 2022-01-31 18:28 | disposition home or self-care (01) ==
LOC: ED 16:11
DX: S61.012A Laceration without foreign body of left thumb without damage to nail, initial encounter (principal); W26.0XXA Contact with knife, initial encounter; Y93.H3 Activity, building and construction; Z28.310 Unvaccinated for COVID-19
CPT/HCPCS: 12001; 99283; A9270-GY

== ENCOUNTER 2022-10-17 19:25 | Emergency (ER) | payer BC ==
[2022-10-17] MEDS ORDERED: CLINDAMYCIN-D5W 600 MG/50 ML IV ONE (19:26)
[2022-10-17 20:44] VITALS: O2SAT 98
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
[2022-10-17] MEDS ORDERED: XYLOCAINE 1% HCL 20 ML MDV IJ ONE (21:43)
[2022-10-17] MEDS ORDERED: NORCO 5/325 MG ONE (21:57)
[2022-10-17] MEDS ORDERED: NORCO 5/325 MG PO ONE (21:57)
[2022-10-17] MEDS ORDERED: Cleocin Phosphate IV 600 MG/4 ML IM ONE (22:30)
[2022-10-17] MEDS ORDERED: CLINDAMYCIN-D5W 900 MG/50 ML*** 900 MG/50 ML BAG IV STA (22:45)
[2022-10-17] MEDS ORDERED: CLINDAMYCIN-D5W 900 MG/50 ML*** 900 MG/50 ML BAG IV ONE (22:45)
[2022-10-17 23:26] VITALS: BP 118/67; PULSE 74
--- NOTE | 2022-10-18 08:43 | XRAY ---
Indication: Laceration. Comparison: None 3 view left hand demonstrates laceration thenar eminence with punctate soft tissue foreign body. No other bony, articular, or soft tissue abnormalities.
== END 2022-10-17 23:15 | disposition home or self-care (01) ==
LOC: ED 19:25
DX: S80.211A Abrasion, right knee, initial encounter (principal); S50.311A Abrasion of right elbow, initial encounter; S20.411A Abrasion of right back wall of thorax, initial encounter; S61.412A Laceration without foreign body of left hand, initial encounter; V28.49XA Other motorcycle driver injured in noncollision transport accident in traffic accident, initial encounter; Z28.310 Unvaccinated for COVID-19
CPT/HCPCS: 12002; 36000; 73130; 96372; 99285; A9270-GY

== ENCOUNTER 2024-05-22 19:59 | Emergency (ER) | payer BC ==
[2024-05-22 21:06] VITALS: TEMP 98.5
--- NOTE | 2024-05-22 21:50 | ERPHSYRPT ---
- History of Present Illness Time Seen by Provider: 05/22/24 21:47 Source: patient Exam Limitations: no limitations Patient Subjective Stated Complaint: "I've had blood in my poop for the past 3 days and my stomach really hurts. The blood is bright red and seems like it's a lot." Triage Nursing Assessment: Pt presents to ER with complaints of diffused abdominal pain x 3 days with bloody stools of bright red blood. Pt denies diarrhea, vomiting, or nausea. States pain is 6/10 scale. Abdomen is tender and slightly distended. Pt is alert and oriented x 3. Skin is pink, warm, and dry. Respirations are easy. Ambulates and communicates appropriately. Physician History: Patient is a 24-year-old male presents to emergency department for evaluation of 3-day history of bright red blood per rectum and left lower quadrant pain. Patient is otherwise healthy no history of diverticulosis or diverticulitis that he is aware of. No trauma no fever. No history of gastric ulcers. Patient states otherwise healthy. He voices no other complaints or concerns at this time. Patient declined pain medication Portions of this note were created with voice recognition technology. There may be grammatical, spelling, punctuation or sound alike errors Timing/Duration: today, day(s) Severity: moderate Modifying Factors: Improves With: nothing Associated Symptoms: denies symptoms Allergies/Adverse Reactions: amoxicillin Allergy (Mild, Verified 05/22/24 21:01) Swelling ketorolac [From Toradol] Adverse Reaction (Mild, Verified 05/22/24 21:01) Vomiting Home Medications: No Reportable Medications [No Reported Medications] 05/22/24 [History] Hx Tetanus, Diphtheria Vaccination/Date Given: Yes Hx Influenza Vaccination/Date Given: No Hx Pneumococcal Vaccination/Date Given: No Immunizations Up to Date: No Travel Risk - International Travel Have you traveled outside of the country in past 3 weeks: No - Emerging Infectious Disease Are you exhibiting symptoms associated with any current EIDs: Yes Symptoms: Abdominal Pain - Review of Systems Constitutional: No Symptoms, No Fever, No Chills Eyes: No Symptoms Ears, Nose, & Throat: No Symptoms Respiratory: No Symptoms, No Cough, No Dyspnea Cardiac: No Symptoms, No Chest Pain, No Edema, No Syncope Abdominal/Gastrointestinal: No Symptoms, No Abdominal Pain, No Nausea, No Vomiting, No Diarrhea Genitourinary Symptoms: No Symptoms, No Dysuria Musculoskeletal: No Symptoms, No Back Pain, No Neck Pain Skin: No Symptoms, No Rash Neurological: No Symptoms, No Dizziness, No Focal Weakness, No Sensory Changes Psychological: No Symptoms Endocrine: No Symptoms Hematologic/Lymphatic: No Symptoms Immunological/Allergic: No Symptoms All Other Systems: Reviewed and Negative - Past Medical History Pertinent Past Medical History: No Neurological History: No Pertinent History ENT History: No Pertinent History Cardiac History: No Pertinent History Respiratory History: No Pertinent History Endocrine Medical History: No Pertinent History Musculoskeletal History: No Pertinent History GI Medical History: No Pertinent History History: No Pertinent History Psycho-Social History: No Pertinent History Male Reproductive Disorders: No Pertinent History Other Medical History: heart murmer - Past Surgical History Past Surgical History: Yes Musculoskeletal: Orthopedic Surgery Other Surgical History: ankle surgery Significant Family History: no pertinent family hx - Social History Smoking Status: Never smoker Exposure to second hand smoke: No Drug Use: none Patient Lives Alone: Yes - Social Determinants of Health Will the patient participate in the screening: Yes Do you worry about a steady place to live?: No Do you have any problems with any of the following?: No known problems In the past 12 months,have you had to go without utilities?: No Transportation Issues: No Has anyone in your support network made you feel unsafe?: No Have you or anyone in your house had to go without enough: No - Nursing Vital Signs Nursing Vital Signs: Initial Vital Signs Blood Pressure 147/78 05/22/24 21:00 O2 Sat by Pulse Oximetry 96 05/22/24 21:00 Pain Scale Pain Intensity 5 - Physical Exam General Appearance: no apparent distress, alert Eye Exam: PERRL/EOMI, eyes nml inspection Ears, Nose, Throat Exam: normal ENT inspection, moist mucous membranes Neck Exam: normal inspection, full range of motion Respiratory Exam: normal breath sounds, lungs clear, airway intact, No respiratory distress Cardiovascular Exam: regular rate/rhythm, normal heart sounds, normal peripheral pulses Gastrointestinal/Abdomen Exam: soft, normal bowel sounds, tenderness (Left lower quadrant tenderness to palpation), other (No active bleeding. Normal external anatomy of anus. No obvious hemorrhoids observed), No mass Back Exam: normal inspection, normal range of motion, No CVA tenderness, No vertebral tenderness Extremity Exam: normal inspection, normal range of motion, pelvis stable Neurologic Exam: alert, oriented x 3, cooperative, normal mood/affect, sensation nml, No motor deficits Skin Exam: normal color, warm, dry, No rash Lymphatic Exam: No adenopathy SpO2 Interpretation: normal SpO2: 97 O2 Delivery: Room Air - Course Nursing assessment & vital signs reviewed: Yes - CT Exams Abdomen/Pelvis CT Interpretation: Tele-radiologist Report (Fatty liver) Ordered Tests: Active Orders 24 hr Category Date Time Status ABDOMEN AND PELVIS W/0 CONTRAS [CT] Stat Exams 05/22/24 21:46 Completed CBC W DIFF Stat Lab 05/22/24 21:55 Completed CMP Stat Lab 05/22/24 21:55 Completed Medication Summary Discontinued Medications Generic Name Dose Route Start Last Admin Trade Name Freq PRN Reason Stop Dose Admin Sodium Chloride 1,000 mls @ 999 mls/hr 05/22/24 21:46 05/22/24 21:56 Sodium Chloride 0.9% 1000 Ml IV 05/22/24 22:46 999 mls/hr .Q1H1M STA Administration Sodium Chloride Confirm 05/22/24 21:54 Sodium Chloride 0.9% 1000 Ml Administered 05/22/24 21:55 Dose 1,000 mls @ ud .ROUTE .STK-MED ONE Lab/Rad Data: Laboratory Result Diagrams 05/22/24 21:55 05/22/24 21:55 Laboratory Results 05/22/24 05/22/24 Range/Units 21:55 21:55 WBC 7.5 (4.23-9.07) x10^3/uL RBC 5.15 (4.63-6.08) x10^6/uL Hgb 15.4 (13.7-17.5) g/dL Hct 44.3 (40.1-51.0) % MCV 86.0 (79.0-92.2) fL MCH 29.9 (25.7-32.2) pg MCHC 34.8 (32.3-36.5) g/dL RDW 12.0 (11.6-14.4) % Plt Count 222 (163-337) x10^3/uL MPV 10.5 (9.4-12.4) fL Gran % 55.8 (34.0-67.9) % Immature Gran % (Auto) 0.4 (0.001-0.429) % Nucleat RBC Rel Count 0.0 (0.00-0.2) % Eos # (Auto) 0.22 (0.04-0.54) x10^3/uL Immature Gran # (Auto) 0.03 (0.001-0.031) x10^3u/L Absolute Lymphs (auto) 2.30 (1.32-3.57) x10^3/uL Absolute Monos (auto) 0.73 (0.30-0.82) x10^3/uL Absolute Nucleated RBC 0.00 (0.00-0.012) x10^3u/L Lymphocytes % 30.5 (21.8-53.1) % Monocytes % 9.7 (5.3-12.2) % Eosinophils % 2.9 (0.8-7.0) % Basophils % 0.7 (0.2-1.2) % Absolute Granulocytes 4.21 (1.78-5.38) x10^3/uL Basophils # 0.05 (0.01-0.08) x10^3/uL Sodium 138 (135-145) mmol/L Potassium 3.9 (3.5-5.1) mmol/L Chloride 105 (98-107) mmol/L Carbon Dioxide 23 (22-30) mmol/L Anion Gap 14.1 (5-15) MEQ/L BUN 19 (9-20) mg/dL Creatinine 0.93 (0.66-1.25) mg/dL Estimated GFR 117.6 ML/MIN Glucose 98 (74-106) mg/dL Calcium 10.0 (8.4-10.2) mg/dL Total Bilirubin 0.40 (0.2-1.3) mg/dL AST 48 (17-59) U/L ALT 59 H (0-50) U/L Alkaline Phosphatase 57 (38-126) U/L Serum Total Protein 8.0 (6.3-8.2) g/dL Albumin 4.6 (3.5-5.0) g/dL - Progress Progress: improved Progress Note: 24-year-old male presents to emergency department for evaluation of left lower abdominal pain and bright red blood per rectum. No epigastric pain. No chest pain or shortness of breath. Physical exam reveals some left lower quadrant tenderness. External anal exam essentially nonremarkable. No active bleeding. Normal anatomy. No hemorrhoid observed. Laboratory workup essentially nonremarkable. CT scan reveals a fatty liver. Vital stable. Patient declined pain medication upon arrival and at time of discharge. He does not appear to be in any significant distress. Significant other at bedside. We discussed the importance of following up with his primary care doctor and obtaining a outpat ient colonoscopy. Patient understands the importance of follow-up with his primary care doctor within 48 hours for reevaluation. They voiced no other complaints or concerns at this time. Portions of this note were created with voice recognition technology. There may be grammatical, spelling, punctuation or sound alike errors Complexity of problem addressed is moderate acute complicated. No critical care time. Complex of data reviewed analyzes moderate. Test ordered test reviewed results analyzed and correlated clinically with history and physical exam. Risk of complication and or risk of morbidity/mortality of patient management is low. Vital stable. Time spent to discharge patient is approximately 20 minutes. Plan of care established for shared decision making. No social determinants of health present to impede follow-up. Portions of this note were created with voice recognition technology. There may be grammatical, spelling, punctuation or sound alike errors 05/22/24 23:16 05/22/24 23:17 Counseled pt/family regarding: lab results, diagnosis, rad results - Departure Departure Disposition: Home Clinical Impression: Abdominal pain, Bright red blood per rectum, Fatty liver Condition: Stable Critical Care Time: No Referrals: IVELISSE NG MD [Primary Care Provider] - Follow up/PCP as directed Additional Instructions: Please follow-up with your family doctor within 48 hours. You will need a relatively urgent colonoscopy for further evaluation and treatment of your rectal bleeding. Discharge/Care Plan ELIGIO BOONE was seen on 05/22/24 in the Emergency Room. The patient was counseled regarding Diagnosis,Lab results, Imaging studies, need for follow up and when to return to the Emergency Room. Prescriptions given: Discharge Note I have spoken with the patient and/or caregivers. I have explained the patient's condition, diagnosis and treatment plan based on the information available to me at this time. I have answered the patient's and/or caregiver's questions and addressed any concerns. The patient and/or caregivers have as good understanding of the patient's diagnosis, condition and treatment plan as can be expected at this point. The vital signs have been stable. The patient's condition is stable and appropriate for discharge from the emergency department. The patient will pursue further outpatient evaluation with the primary care physician or other designated or consulting physician as outlined in the dischar ge instructions. The patient and/or caregivers are agreeable to this plan of care and follow-up instructions have been explained in detail. The patient and/or caregivers have received these instruction. The patient/and or caregivers are aware that any significant change in condition or worsening of symptoms should prompt an immediate return to this or the closest emergency department or call 911.
[2024-05-22 21:53] VITALS: RESP 16
[2024-05-22] MEDS ORDERED: Sodium Chloride 0.9% 1000 ML 1,000 ML ONE (21:54)
[2024-05-22] MEDS: Sodium Chloride 0.9% 1000 ML 1,000 ML IV STA (21:56)
[2024-05-22 21:59] LABS: Absolute Neutrophil Ct (ANC) 4.21 x10^3/uL (1.78-5.38); BASOPHIL % 0.7 % (0.2-1.2); Basophil (Absolute #) 0.05 x10^3/uL (0.01-0.08); Eosinophil % 2.9 % (0.8-7.0); Eosinophil (Absolute #) 0.22 x10^3/uL (0.04-0.54); Hematocrit 44.3 % (40.1-51.0); Hemoglobin 15.4 g/dL (13.7-17.5); IMMATURE GRAN # 0.03 x10^3u/L (0.001-0.031); IMMATURE GRAN % 0.4 % (0.001-0.429); Lymphocytes % 30.5 % (21.8-53.1); Mean Corpuscular Hemoglobin 29.9 pg (25.7-32.2); Mean Corpuscular Hgb Concent. 34.8 g/dL (32.3-36.5); Mean Platelet Volume 10.5 fL (9.4-12.4); Monocyte (Absolute #) 0.73 x10^3/uL (0.30-0.82); Monocytes % 9.7 % (5.3-12.2); Neutrophil % 55.8 % (34.0-67.9); Platelet Count 222 x10^3/uL (163-337); Red Blood Count 5.15 x10^6/uL (4.63-6.08); White Blood Count 7.5 x10^3/uL (4.23-9.07)
[2024-05-22 22:12] LABS: ALBUMIN 4.6 g/dL (3.5-5.0); ANION GAP 14.1 MEQ/L (5-15); BILIRUBIN,TOTAL 0.4 mg/dL (0.2-1.3); Creatinine 1 0.93 mg/dL (0.66-1.25); EST GLOMERULAR FILTRATION RATE 117.6 ML/MIN; Potassium 3.9 mmol/L (3.5-5.1)
--- NOTE | 2024-05-22 22:51 | XRAY ---
CLINICAL HISTORY: pain COMPARISON: - TECHNIQUE: Contiguous axial images were obtained from the level of the diaphragm to the pubic symphysis without intravenous or oral contrast. Coronal and sagittal reconstructions were likewise performed and indicated to increase the sensitivity for detecting clinically relevant pathology. CT scan was performed according to ALARA (as low as reasonable achievable). FINDINGS: The visualized lung bases are clear. Evaluation of the abdominal and pelvic visceral organs is limited without intravenous contrast. The unenhanced liver shows fatty infiltration. Old calcified granuloma is seen in the left lobe. The spleen, pancreas, and adrenal glands are grossly unremarkable. The gallbladder is present. The kidneys are normal in size and attenuation without obvious calcification. There is no hydronephrosis or perinephric stranding. The ureters are normal in caliber. No adenopathy or fluid collections are seen. No evidence of focal or diffuse bowel wall thickening or evidence of bowel obstruction is seen. The appendix is visualized in the right lower quadrant and appears within normal limits. The aorta is normal in caliber. The urinary bladder is normal in contour. Pelvic viscera are grossly unremarkable. Phleboliths are seen in the pelvis Disc osteophytic complex is seen at L5-S1. No aggressive appearing osseous lesions are identified. IMPRESSION: 1. Fatty liver with old calcified granuloma 2. No acute abnormality seen in the abdomen and pelvis Electronically Signed by: Guy Eckert MD. (05/22/2024 22:48:19 EST)
[2024-05-22 23:05] VITALS: BP 111/80; PULSE 83
[2024-05-22 23:19] VITALS: O2SAT 97
== END 2024-05-22 23:35 | disposition home or self-care (01) ==
LOC: ED 19:59
DX: K92.1 Melena (principal); R10.32 Left lower quadrant pain; K76.0 Fatty (change of) liver, not elsewhere classified
CPT/HCPCS: 36415; 74176; 80053; 85025; 99284